=== PATIENT | female | born 2000 | race Caucasian/White ===

== ENCOUNTER 2020-11-26 00:20 | Emergency (ER) | payer BC ==
[2020-11-26] MEDS ORDERED: Ibuprofen 600 MG Tab PO ONE (01:11)
[2020-11-26] MEDS ORDERED: Orphenadrine 100 MG Tab.ER PO STA (01:11)
[2020-11-26] MEDS ORDERED: Ondansetron 4 MG Tab.DIS PO ONE (01:11)
--- NOTE | 2020-11-26 01:17 | EDM.PDOC ---
ED HPI GENERAL MEDICAL PROBLEM - General Chief Complaint: Headache Stated Complaint: MIGRAINE Time Seen by Provider: 11/26/20 00:54 Source of Information: Reports: Patient, Significant Other (Boyfriend) History Limitations: Reports: No Limitations - History of Present Illness INITIAL COMMENTS - FREE TEXT/NARRATIVE: Ms. Winston is a pleasant 20-year-old woman who now presents the ED with a complaint of a headache, sharp in character, felt across the entirety of the top of her head, since 11/23/2020. She states that her headache is briefly made much worse if she coughs. She has had nausea and vomiting since yesterday, , 11/25/2020, but denies visual changes blurry vision, wavy lines, or flashing lights, photophobia or phonophobia, or neurologic symptoms, such as tingling, numbness, or weakness. She states that she has had similar headaches countless times in the past, that she gets headaches on a near-daily basis, but not usually this severe. She states that she ordinarily takes Tylenol or ibuprofen for them. She states that she has never undergone a Neurologic evaluation, although she did once have a CT of her head. She states that she has been taking Tylenol and ibuprofen, with her most recent dose around 19:30 this evening, without significant improvement. Here in the ED, the patient is found to be tachycardic at 111 bpm, otherwise, she is hemodynamically stable, afebrile, saturating 96% on room air. Other than frequent headaches, and her recent nausea vomiting, the patient denies having a recent fever, chills, sore throat, ear pain, nasal or sinus congestion, cough, dyspnea, chest pain, palpitations, constipation, diarrhea, abdominal pain, urinary symptoms, recent weight gain or weight loss, recent bloody bowel movements or black bowel movements, recent joint aches, or rashes. The patient does not recall the name of her PCP at [facility]. She has not received an influenza vaccine this season, and declined an offer to get one here in the ED. Headache Pain Score (Numeric/FACES): 8 - Related Data Allergies Allergy/AdvReac Type Severity Reaction Status Date / Time No Known Allergies Allergy Verified 11/26/20 00:37 Home Meds: Home Meds Albuterol Sulfate [Proventil Hfa] 1 inh IH Q4HR PRN 11/26/20 [History] Ondansetron [Zofran ODT] 1 tab PO Q8H PRN #10 tab.dis 11/26/20 [Rx] Orphenadrine [Norflex] 1 tab PO Q12H PRN #14 tab.er 11/26/20 [Rx] Past Medical History Musculoskeletal History: Reports: Fracture (right leg, ankle, and foot) Endocrine/Metabolic History: Reports: Obesity/BMI 30+ - Past Surgical History HEENT Surgical History: Reports: Tonsillectomy Musculoskeletal Surgical History: Reports: ORIF (right ankle) Social & Family History - Tobacco Use Tobacco Use Status *Q: Current Every Day Tobacco User Tobacco Use Within Last Twelve Months: Smokeless Tobacco (Chews on occasion), Vaping (Nicotine, THC, CBD) Years of Tobacco use: 4 Packs/Tins Daily: 0.5 Packs/Tins Daily Comment: Down from 1.25 ppd - Caffeine Use Caffeine Use: Reports: Coffee, Soda - Alcohol Use Alcohol Use History: Yes Alcohol Use Frequency: Socially - Recreational Drug Use Recreational Drug Use: Yes Drug Use in Last 12 Months: Yes Recreational Drug Type: Reports: Marijuana/Hashish (vapes THC and CBD) - Living Situation & Occupation Living situation: Reports: Single, with Significant Other (Boyfriend + his daughter) Occupation: Employed ([employer]) ED ROS GENERAL - Review of Systems Review Of Systems: Comprehensive ROS is negative, except as noted in HPI. Neurological: Reports: Headache (frequent) - Physical Exam Exam: See Below Exam Limited By: No Limitations General Appearance: Alert, WD/WN, No Apparent Distress Eye Exam: Bilateral Eye: EOMI, Normal Inspection, PERRL Ears: Normal External Exam, Normal Canal, Hearing Grossly Normal, Normal TMs Nose: Normal Inspection, Normal Mucosa, No Blood Throat/Mouth: Normal Inspection, Normal Lips, Normal Teeth, Normal Gums, Normal Oropharynx, Normal Voice, No Airway Compromise Head Exam: Atraumatic, Normocephalic, Sinus Tenderness (reproducible) Neck: Normal Inspection, Supple, Non-Tender, Full Range of Motion. No: Lymphadenopathy (L), Lymphadenopathy (R) Respiratory/Chest: No Respiratory Distress, Lungs Clear, Normal Breath Sounds, No Accessory Muscle Use Cardiovascular: Normal Peripheral Pulses, Regular Rate, Rhythm, No Gallop, No JVD, No Murmur, No Rub GI/Abdominal: Normal Bowel Sounds, Soft, Non-Tender, No Organomegaly, No Distention, No Abnormal Bruit, No Mass Neuro Exam (Abbreviated): Alert, Oriented, CN II-XII Intact, Normal Cognition, No Motor/Sensory Deficits Back Exam: Normal Inspection, Full Range of Motion, NT Extremities: Normal Inspection, Normal Range of Motion, Non-Tender, No Pedal Edema, Normal Capillary Refill Psychiatric: Normal Affect Skin Exam: Warm, Dry, Intact, Normal Color, No Rash Course - Vital Signs Last Recorded V/S: Last Vital Signs Temp 37.3 C 11/26/20 00:35 Pulse 111 H 11/26/20 00:35 Resp 16 11/26/20 00:35 BP 113/57 L 11/26/20 00:35 Pulse Ox 96 11/26/20 00:35 - Orders/Labs/Meds Meds: Medications Discontinued Medications Generic Name Dose Route Start Last Admin Trade Name Zevq PRN Reason Stop Dose Admin Ibuprofen 600 mg 11/26/20 01:11 11/26/20 01:20 Motrin PO 11/26/20 01:12 600 mg ONETIME ONE Administration Ondansetron HCl 4 mg 11/26/20 01:11 11/26/20 01:20 Zofran Odt PO 11/26/20 01:12 4 mg ONETIME ONE Administration Orphenadrine Citrate 100 mg 11/26/20 01:11 11/26/20 01:20 Norflex PO 11/26/20 01:12 100 mg ONETIME STA Administration - Re-Assessments/Exams Free Text/Narrative Re-Assessment/Exam: 11/26/20 01:12 The patient's history & physical exam indicate that she is suffering from recurrent tension-type headaches. I will treat her with Norflex, ibuprofen, and Zofran, and submit prescriptions for Norflex and Zofran. I also suggested she look into dry needling. Departure - Departure Time of Disposition: 01:13 Disposition: Home, Self-Care 01 Condition: Good Clinical Impression: Tension type headache - Discharge Information *PRESCRIPTION DRUG MONITORING PROGRAM REVIEWED*: Not Applicable *COPY OF PRESCRIPTION DRUG MONITORING REPORT IN PATIENT BELA: Not Applicable Prescriptions: Orphenadrine [Norflex] 1 tab PO Q12H PRN #14 tab.er PRN Reason: Muscle Spasm Ondansetron [Zofran ODT] 1 tab PO Q8H PRN #10 tab.dis PRN Reason: Nausea/Vomiting Instructions: General Headache Without Cause, [id number] Referrals: PCP,None [Primary Care Provider] - Forms: ED Department Discharge Additional Instructions: You were seen in the ER for 3 days of a headache, with nausea and vomiting. Based on your history and physical exam, you are most likely suffering from recurrent tension-type headaches. You have been treated with the muscle-relaxant Norflex, ibuprofen, and the anti- nausea medicine Zofran, and prescriptions for both Norflex and Zofran have been provided to you. Take one tablet of Norflex every 12 hous, as needed for headache pain. Take 3 tablets (600 mg) of [id number] ibuprofen up to every 8 hour, with food, as needed for headache pain. Dissolve one tablet of Zofran on your tongue up to every 8 hours, as neeed for nausea/vomiting. We recommend you look into dry needling, to see if that helps with your headaches. Dry needling is performed by some Physical Therapists. If any other problems, please do not hesitate to return to the ER. Sepsis Event Note (ED) - Evaluation Sepsis Screening Result: No Definite Risk - Focused Exam Vital Signs: Vital Signs Temp Pulse Resp BP Pulse Ox 11/26/20 00:35 37.3 C 111 H 16 113/57 L 96
== END 2020-11-26 01:30 | disposition home or self-care (01) ==
LOC: JD.ED 00:20
DX: G44.209 Tension-type headache, unspecified, not intractable (principal); E66.9 Obesity, unspecified; Z72.0 Tobacco use; Z68.38 Body mass index [BMI] 38.0-38.9, adult
CPT/HCPCS: 99283; A9270

== ENCOUNTER 2021-07-01 07:40 | Emergency (ER) | payer SELFPAY ==
[2021-07-01] MEDS ORDERED: Penicillin V Potassium 500 MG Tab PO STA (08:11)
[2021-07-01] MEDS ORDERED: Acetaminophen/HYDROcodone 325-5 MG Tab PO ONE (08:14)
--- NOTE | 2021-07-01 08:19 | EDM.PDOC ---
ED HPI GENERAL MEDICAL PROBLEM - General Chief Complaint: ENT Problem Stated Complaint: DENTAL COMPLAINT Time Seen by Provider: 07/01/21 07:50 Source of Information: Reports: Patient History Limitations: Reports: No Limitations - History of Present Illness INITIAL COMMENTS - FREE TEXT/NARRATIVE: Ms. Winston is a very pleasant 21-year-old woman who now presents the ED stating that she has had lower left dental pain for the past 3 days. No recent fever or oral drainage. She feels like there is some swelling to her left mandible and neck. The patient states that she has been taking 5 OTC ibuprofen (1000 mg) every 3 hours to treat her pain. No other treatment. The patient states that she broke a lower left tooth a few months ago, however, she has not seen a dentist about it, citing a lack of funds. She states that there is a free dental clinic in [place] on 07/08/2021 and 07/09/2021 that she intends to go to. Here in the ED, the patient is found to be hemodynamically stable, afebrile, saturating 96% on room air. She is tearful. Other than her lower left dental pain, the patient denies having a recent fever, chills, sore throat, ear pain, nasal or sinus congestion, cough, dyspnea, chest pain, palpitations, nausea, vomiting, constipation, diarrhea, abdominal pain, urinary symptoms, recent weight gain or weight loss, recent bloody bowel movements or black bowel movements, recent joint aches, headaches, or rashes. The patient does not recall the name of her PCP at [facility]. She has received a single Moderna vaccination. Oral/Mouth Pain Score (Numeric/FACES): 10 - Related Data Allergies Allergy/AdvReac Type Severity Reaction Status Date / Time No Known Allergies Allergy Verified 07/01/21 07:49 Home Meds: Home Meds Acetaminophen/oxyCODONE [Percocet 325-5 MG] 1 - 2 tab PO Q6H PRN #14 tab 07/01/21 [Rx] Penicillin V Potassium 1 tab PO Q6HR #40 tab 07/01/21 [Rx] Past Medical History Musculoskeletal History: Reports: Fracture (right leg, ankle, foot) Endocrine/Metabolic History: Reports: Obesity/BMI 30+ - Past Surgical History HEENT Surgical History: Reports: Tonsillectomy Musculoskeletal Surgical History: Reports: ORIF (right ankle) Social & Family History - Tobacco Use Tobacco Use Status *Q: Current Every Day Tobacco User Tobacco Use Within Last Twelve Months: Vaping (Nicotine, THC, CBD) Years of Tobacco use: 5 Packs/Tins Daily: 0.5 Packs/Tins Daily Comment: Down from 1.5 ppd - Caffeine Use Caffeine Use: Reports: None - Alcohol Use Alcohol Use History: Yes Alcohol Use Frequency: Socially - Recreational Drug Use Recreational Drug Use: Yes Drug Use in Last 12 Months: Yes Recreational Drug Type: Reports: Marijuana/Hashish (Vapes THC, CBD) - Living Situation & Occupation Living situation: Reports: Single, with Significant Other (Boyfriend + his daughter) Occupation: Employed ([employer]) ED ROS ENT - Review of Systems Review Of Systems: Comprehensive ROS is negative, except as noted in HPI. ED EXAM, ENT - Physical Exam Exam: See Below Exam Limited By: No Limitations General Appearance: Alert, WD/WN, Mild Distress (tearful) Eye Exam: Bilateral Eye: EOMI Ears: Normal External Exam, Normal Canal, Hearing Grossly Normal, Normal TMs Nose: Normal Inspection, Normal Mucousa, No Blood Mouth/Throat: Normal Lips, Normal Oropharynx, Other (Tooth #2 with advanced decay. Teeth numbers 8 and 9 with medial decay. Tooth #17 non-erupted. Tooth #19 (the tooth of concern) with advanced decay and possible infection. A small pustule noted to the buccal gingiva adjacent to tooth #19. Tooth #30 with lateral decay. Tooth #32 non-erupted.) Head: Atraumatic, Normocephalic Neck: Normal Inspection, Supple, Non-Tender, Full Range of Motion. No: Lymphadenopathy (L), Lymphadenopathy (R) Course - Vital Signs Last Recorded V/S: Last Vital Signs Temp 36.1 C 07/01/21 07:46 Pulse 73 07/01/21 07:46 Resp 18 07/01/21 07:46 BP 137/89 07/01/21 07:46 Pulse Ox 96 07/01/21 07:46 - Orders/Labs/Meds Meds: Medications Discontinued Medications Generic Name Dose Route Start Last Admin Trade Name Freq PRN Reason Stop Dose Admin Hydrocodone Bitart/Acetaminophen 2 tab 07/01/21 08:14 07/01/21 08:21 Acetaminophen/Hydrocodone 325-5 Mg Tab PO 07/01/21 08:15 2 tab ONETIME ONE Administration Penicillin V Potassium 500 mg 07/01/21 08:11 07/01/21 08:21 Penicillin V Potassium 500 Mg Tab PO 07/01/21 08:12 500 mg ONETIME STA Administration - Re-Assessments/Exams Free Text/Narrative Re-Assessment/Exam: 07/01/21 08:12 I attempted to drain the tiny pustule seen on the buccal gingiva adjacent to tooth #30, however, no pus came out, only a small drop of blood. The patient will be started on penicillin and Index here in the ED, and I will discharge her home with prescriptions for both penicillin and Percocet. She is to also take OTC ibuprofen at an appropriate dosage. She is to follow-up at the [facility] dental clinic in [place] on 07/08/2021. Departure - Departure Time of Disposition: 08:13 Disposition: Home, Self-Care 01 Condition: Good Clinical Impression: Dental infection - Discharge Information *PRESCRIPTION DRUG MONITORING PROGRAM REVIEWED*: Not Applicable *COPY OF PRESCRIPTION DRUG MONITORING REPORT IN PATIENT BELA: Not Applicable Prescriptions: Penicillin V Potassium 1 tab PO Q6HR #40 tab Acetaminophen/oxyCODONE [Percocet 325-5 MG] 1 - 2 tab PO Q6H PRN #14 tab PRN Reason: Pain (Severe 7-10) Referrals: PCP,Not In Area [Primary Care Provider] - Forms: ED Department Discharge Additional Instructions: You were seen in the emergency room for 3 days of lower left dental pain. On examination, you have advanced decay of tooth #19. You also have significant decay of several other teeth. An attempt to drain a small pus pocket was made in the ER, however, only a small drop of blood came forth, with no pus being drained. You are to take fkri-[id number] ibuprofen, 3 tablets (600 mg) every 8 hours, with food, [id number] initially, then as needed for discomfort. Do not continue to take an excessive dose of ibuprofen. You have been started on the antibiotic penicillin, and a prescription for penicillin has been provided to you. Take 1 tablet of penicillin every 6 hours, starting around 2:00 this afternoon, as prescribed. Finish the entire prescription unless told otherwise by a dentist or doctor. A prescription for the opioid pain reliever Percocet has been provided to you. You may take 1 to 2 tablets of Percocet up to every 6 hours, as needed for pain not relieved by ibuprofen. If you take Percocet, do not drive or operate heavy machinery for 12 hours afterwards. Percocet may cause constipation, so consider taking a stool softener. As discussed, it is essential that you follow-up with a dentist. Please go to the [facility] dental clinic in [place] on 07/08/2021. If any other problems, please do not hesitate to return to the ER. Sepsis Event Note (ED) - Focused Exam Vital Signs: Vital Signs Temp Pulse Resp BP Pulse Ox 07/01/21 07:46 36.1 C 73 18 137/89 96
== END 2021-07-01 08:35 | disposition home or self-care (01) ==
LOC: JD.ED 07:40
DX: K04.7 Periapical abscess without sinus (principal); K02.9 Dental caries, unspecified; E66.9 Obesity, unspecified; Z68.37 Body mass index [BMI] 37.0-37.9, adult; Z72.0 Tobacco use
CPT/HCPCS: 99282; A9270

== ENCOUNTER 2024-03-18 21:42 | Emergency (ER) | payer OTHER ==
[2024-03-18] MEDS ORDERED: Sodium Chloride 0.9% 10 ML Syringe FLUSH PRN (21:52)
[2024-03-18 22:11] LABS: BASOPHILS PERCENT AUTO 0.4 % (0.0-1.0); EOSINOPHILS ABSOLUTE AUTO 0.2 K/mm3 (0.0-0.4); EOSINOPHILS PERCENT AUTO 2.3 % (0.0-6.0); HEMATOCRIT 39.8 % (37.0-47.0); HEMOGLOBIN 13.3 gm/dl (12.0-16.0); IMMATURE GRAN ABSOLUTE AUTO 0.03 K/mm3 (0.00-0.05); IMMATURE GRAN PERCENT AUTO 0.3 % (0.0-0.4); LYMPHOCYTES ABSOLUTE AUTO 3.1 K/mm3 (1.0-4.8); LYMPHOCYTES PERCENT AUTO 30.3 % (24.0-44.0); MEAN CORPUSCULAR HEMOGLOBIN 29.6 pg (28.0-32.0); MEAN CORPUSCULAR HGB CONC 33.4 g/dl (32.0-36.0); MEAN CORPUSCULAR VOLUME 88.6 fl (83.0-99.0); MONOCYTES ABSOLUTE AUTO 0.8 K/mm3 (0.0-0.8); MONOCYTES PERCENT AUTO 7.4 % (0.0-8.0); NEUTROPHILS ABSOLUTE AUTO 6.1 K/mm3 (1.8-7.7); NEUTROPHILS PERCENT AUTO 59.3 % (41.0-71.0); PLATELET COUNT,PLT 357 K/mm3 (150-400); RED BLOOD CELL COUNT 4.49 M/mm3 (4.10-5.30); WHITE BLOOD CELL COUNT,WBC 10.34 K/mm3 (3.9-11.3)
[2024-03-18 22:31] LABS: INR 0.96; PROTHROMBIN TIME 10.3 SECONDS (9.7-12.0)
[2024-03-18 22:33] LABS: PTT,PARTIAL THROMBOPLSTIN TIME 21.4 SECONDS (21.7-31.4)
[2024-03-18 22:34] LABS: D-DIMER QUANTITATIVE < 0.19 mg/L (0.19-0.50)
[2024-03-18 22:38] LABS: A/G RATIO 1.1 (1-2); ALANINE AMINOTRANSFERASE,ALT 24 U/L (14-59); ALBUMIN 3.9 g/dl (3.4-5.0); ALKALINE PHOSPHATASE 61 U/L (46-116); ANION GAP 13.4 (5-15); ASPARTATE AMNIOTRANSFERASE,AST 16 U/L (15-37); BILIRUBIN TOTAL 0.6 mg/dL (0.2-1.0); BLOOD UREA NITROGEN,BUN 16 mg/dL (7-18); CALCIUM 8.9 mg/dL (8.5-10.1); CARBON DIOXIDE,CO2 28 mEq/L (21-32); CHLORIDE,CL 102 mEq/L (98-107); EST CRCL DRUG DOSING (CG) 74.26 mL/min; ESTIMATED GFR 80 mL/min (>60); ETHANOL BLOOD MEDICAL 0.01 gm% (0.00); GLUCOSE RANDOM 94 mg/dL (70-99); LIPASE 23 U/L (16-77); POTASSIUM,K 3.4 mEq/L (3.5-5.1); PROTEIN TOTAL,TP 7.5 g/dl (6.4-8.2); SODIUM,NA 140 mEq/L (136-145)
[2024-03-18 22:41] LABS: PRO B-TYPE NATRIUR PEPT,BNPPRO 62 pg/mL (0-125)
[2024-03-18 22:43] LABS: HCG QUALITATIVE,SERUM NEGATIVE (NEGATIVE)
[2024-03-18 22:47] LABS: TROPONIN I HIGH SENSITIVITY < 4 pg/mL (<=51)
[2024-03-18 23:43] LABS: APPEARANCE,URINE CLEAR (Clear); BILIRUBIN,URINE NEGATIVE (Negative); COLOR,URINE YELLOW (Yellow); GLUCOSE,URINE NEGATIVE (Negative); KETONES,URINE NEGATIVE (Negative); LEUKOCYTE ESTERASE,URINE NEGATIVE (Negative); NITRITE,URINE NEGATIVE (Negative); OCCULT BLOOD,URINE NEGATIVE (Negative); PH,URINE 8.5 (5.0-8.0); PROTEIN,URINE 1+ (Negative); UROBILINOGEN,URINE 0.2 (0.2-1.0)
[2024-03-18] MEDS: Sodium Chloride 0.9% 1,000 ML IV ONE (23:43)
[2024-03-18 23:53] LABS: AMORPHOUS SEDIMENT,URINE FEW /hpf (NOT SEEN); BACTERIA,URINE FEW /hpf (FEW); EPITHELIAL CELLS,URINE 0-5 /hpf (0-5); MUCUS,URINE FEW /hpf (FEW); RBC,URINE NOT SEEN /hpf (0-5); WBC,URINE 0-5 /hpf (0-5)
[2024-03-18 23:55] LABS: AMPHETAMINES SCREEN, URINE NEGATIVE (CUTOFF=500); BARBITURATE SCREEN,URINE NEGATIVE (CUTOFF=200); BENZODIAZEPINES SCREEN,URINE NEGATIVE (CUTOFF=150); BUPRENORPHINE SCREEN,URINE NEGATIVE (CUTOFF=10); METHADONE SCREEN, URINE NEGATIVE (CUTOFF=200); METHAMPHETAMINES SCREEN, URINE NEGATIVE (CUTOFF=500); OXYCODONE SCREEN,URINE NEGATIVE (CUT0FF=100); THC SCREEN,URINE 20 NG/ML PRESUMPTIVE POSITIVE (CUTOFF=50)
== END 2024-03-19 00:09 | disposition home or self-care (01) ==
LOC: JD.ED 21:42
DX: R55 Syncope and collapse (principal); E66.9 Obesity, unspecified; Z68.38 Body mass index [BMI] 38.0-38.9, adult; Z79.2 Long term (current) use of antibiotics
CPT/HCPCS: 36415; 70450; 70450-26; 70486; 70486-26; 71045; 71045-26; 80053; 80306; 80307; 81001; 83690; 83880; 84484; 84703; 85025; 85379; 85610; 85730; 93005; 99282; 99284